=== PATIENT | male | born 1975 ===

== ENCOUNTER 2023-04-11 18:43 | Emergency (ER) | payer MEDICARE ==
[~2023-04-11] VITALS: Ht 182.9 cm; Wt 68.0 kg
== END 2023-04-11 20:18 | disposition home or self-care (01) ==
LOC: ER 18:43
DX: R06.02 Shortness of breath (principal); Z86.73 Personal history of transient ischemic attack (TIA), and cerebral infarction without residual deficits
CPT/HCPCS: 71046; 93005; 93010; 99284-25